=== PATIENT | female | born 1980 | race Hispanic/Latino ===

== ENCOUNTER 2017-07-31 07:49 | Outpatient (CLI) | payer OTHER ==
--- NOTE | 2017-07-31 08:31 | ULT ---
ULTRASOUND ABDOMEN COMPLETE: HISTORY: 36-year-old female with right upper quadrant abdominal pain. TECHNIQUE: Patel-scale ultrasound evaluation of the liver, gallbladder, spleen, pancreas, common bile duct, kidne ys, abdominal aorta, and inferior vena cava (IVC). FINDINGS: The gallbladder has normal wall thickness and has no evidence of gallstones or sludge. The hepatic e chogenicity is diffusely increased, consistent with fatty liver. The kidneys have normal echogenicit y, and there is no hydronephrosis. There is no splenomegaly. There is no abdominal aortic aneurysm. No free fluid is identified. The inferior vena cava is visualized. The pancreas is visualized, al though ultrasound is relatively insensitive for pancreatic pathology compared to CT and MRI. There is no biliary dilation. The common duct caliber is 4 mm. IMPRESSION: 1) Hepatic steatosis. 2) Otherwise negative. jose POS: [facility]
== END 2017-07-31 07:50 | disposition home or self-care (01) ==
LOC: ULT 07:49
PROVIDERS: ATTEND Family Medicine
DX: R10.811 Right upper quadrant abdominal tenderness (principal); K76.0 Fatty (change of) liver, not elsewhere classified
CPT/HCPCS: 76700

== ENCOUNTER 2018-12-25 17:10 | Emergency (ER) | payer OTHER | END 2018-12-25 18:01 | disposition left against medical advice (07) | LOC: ERS 17:10 | DX: Z53.21 Procedure and treatment not carried out due to patient leaving prior to being seen by health care provider (principal) ==

== ENCOUNTER 2019-03-05 09:11 | Outpatient (CLI) | payer BC ==
[2019-03-05 09:42] LABS: Estimated GFR-MDRD - POC Greater than 90
--- NOTE | 2019-03-05 10:24 | MRI ---
Brain MRI with and without contrast: 03/05/2019 COMPARISON: None HISTORY: Evaluate colloid cyst noted on prior imaging : Multiplanar multisequence MR imaging of the brain is obtained with and without contrast FINDINGS: The diffusion weighted imaging demonstrates no evidence for acute infarction. The gradient echo imaging demonstrates no evidence for intracranial hemorrhage. The axial T2-weighted imaging demonstrates no significant paranasal sinus or mastoid air cell opacifi cation. Arterial flow voids at the axial level of the skull base appear unremarkable on the T2-weighted imaging. There is a midline intracranial mass associated with the anterior superior aspect of the third ventri kari at the junction with the bilateral lateral ventricles. This mass measures approximately 1.1 x 1.1 x 1.0 cm. It is isointense on T1 and T2 weighted imaging, and slightly hyperintense on FLAIR imag ing. It demonstrates no abnormal enhancement. Signal characteristics and location most consistent with a colloid cyst. The postcontrast imaging demonstrates no abnormal enhancement within the brain parenchyma. IMPRESSION: Midline intracranial lesion as detailed above, location and signal characteristics most c onsistent with a colloid cyst.
[2019-03-05] MEDS ORDERED: Gadobenate Dimeglumine 529 MG/1 ML (20ML VIAL) ONE (18:07)
== END 2019-03-05 09:12 | disposition home or self-care (01) ==
LOC: BICMRI 09:11
PROVIDERS: ATTEND Neurological Surgery
DX: Q04.6 Congenital cerebral cysts (principal); G93.9 Disorder of brain, unspecified
CPT/HCPCS: 70553; 82565; A9577

== ENCOUNTER 2023-02-09 12:32 | Outpatient (CLI) | payer BC, OTHER | END 2023-02-09 12:33 | disposition home or self-care (01) | LOC: ULT 12:32 | PROVIDERS: ATTEND Student in an Organized Health Care Education/Training Program | DX: R01.1 Cardiac murmur, unspecified (principal) | CPT/HCPCS: 93306 ==

== ENCOUNTER 2025-05-28 06:45 | Day surgery (SDC) | payer BC ==
[2025-05-26 09:29] VITALS: BMI 28.0
[2025-05-28] MEDS ORDERED: PROPOFOL 20 ML ONE (06:56)
[2025-05-28] MEDS ORDERED: Lidocaine 1% PF 5 ML VIAL ONE (06:59)
[2025-05-28] MEDS ORDERED: CEFAZOLIN 2 GM VIAL ONE (07:22)
[2025-05-28] MEDS ORDERED: Ondansetron PF 4 MG/2 ML Vial ONE (08:44)
[2025-05-28] MEDS ORDERED: HYDROcodone/Acetaminophen 5/325 mg Tablet ONE (11:42)
== END 2025-05-28 12:30 | disposition home or self-care (01) ==
LOC: SDC 06:45
PROVIDERS: ATTEND Orthopaedic Surgery
PROC: 01N54ZZ Release Median Nerve, Percutaneous Endoscopic Approach (ICD-10-PCS; principal; 2025-05-28)
DX: G56.01 Carpal tunnel syndrome, right upper limb (principal)
CPT/HCPCS: A6223; J0665; J1100; J2250; J2405; J2704; J3010